=== PATIENT | female | born 1975 | race African-American/Black ===

== ENCOUNTER 2019-12-28 00:05 | Emergency (ER) | payer OTHER ==
[~2019-12-28] VITALS: Ht 170.2 cm; Wt 91.0 kg
[~2019-12-28 00:05] MED LIST: DEPO PROVERA
[2019-12-28 00:06] VITALS: BP 106/66
== END 2019-12-28 05:13 | disposition left against medical advice (07) ==
LOC: ER 00:05
DX: M54.9 Dorsalgia, unspecified (principal); Z53.21 Procedure and treatment not carried out due to patient leaving prior to being seen by health care provider

== ENCOUNTER 2020-07-08 11:40 | Emergency (ER) | payer OTHER ==
[~2020-07-08] VITALS: Ht 170.2 cm; Wt 93.0 kg
[2020-07-08 11:41] VITALS: BP 106/58
[2020-07-08] MEDS ORDERED: TETRACAINE 0.5% OPHTH DROPS 4ML RIGHTEYE ONE (12:15)
[2020-07-08] MEDS ORDERED: FLUORESCEIN SODIUM 1MG/STRIP RIGHTEYE ONE (12:15)
== END 2020-07-08 13:20 | disposition home or self-care (01) ==
LOC: ER 11:40
DX: B02.30 Zoster ocular disease, unspecified (principal); F12.10 Cannabis abuse, uncomplicated; F15.10 Other stimulant abuse, uncomplicated; F17.200 Nicotine dependence, unspecified, uncomplicated; Z88.8 Allergy status to other drugs, medicaments and biological substances; Z98.890 Other specified postprocedural states
CPT/HCPCS: 99283

== ENCOUNTER 2020-07-11 09:12 | Emergency (ER) | payer OTHER | END 2020-07-11 09:57 | disposition left against medical advice (07) | LOC: ER 09:12 | DX: Z53.21 Procedure and treatment not carried out due to patient leaving prior to being seen by health care provider (principal) ==